=== PATIENT | female | born 2000 ===

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

== ENCOUNTER 2021-04-24 10:48 | Emergency (ER) | payer OTHER ==
[~2021-04-24] VITALS: Ht 172.7 cm; Wt 72.6 kg
== END 2021-04-24 13:42 | disposition home or self-care (01) ==
LOC: ER 10:48 → EMR PED 10:55 → ER 10:55 → EMR PED 13:42
DX: J06.9 Acute upper respiratory infection, unspecified (principal); Z20.822 Contact with and (suspected) exposure to COVID-19